=== PATIENT | female | born 1985 | race Caucasian/White ===

== ENCOUNTER 2021-04-19 09:50 | Outpatient (REF) | payer OTHER, SELFPAY ==
[2021-04-19 10:36] LABS: Hematocrit 42.9 % (37.0-47.0); Hemoglobin 14.4 g/dl (12.0-16.0); Mean Corpuscular HGB Conc 33.6 g/dl (31.0-35.0); Mean Corpuscular Hemoglobin 30.4 pg (27.0-33.0); Mean Corpuscular Volume 90.5 fL (80.0-98.0); Mean Platelet Volume 9.8 fL (9.4-12.3); Platelet Count 255 X10*3/uL (160-400); Red Blood Count 4.74 X10*6/uL (4.20-5.50); Red Cell Distribution Width 12.3 % (11.0-16.0)
[2021-04-19 10:54] LABS: Appearance Urine HAZY; Color Urine STRAW; Glucose Urine UA NEG (NEG); Leukocyte Esterase Urine 1+ (NEG); Nitrite Urine NEG (NEG); Specific Gravity - Urine <= 1.005 (1.005-1.025); Urine Blood NEG (NEG); Urine Ketones NEG (NEG); Urine Protein NEG (NEG-TRACE)
[2021-04-19 11:24] LABS: Bacteria Urine TRACE /LPF; RBC Urine 0-2 /HPF (0); Squamous Epithelial Cell Urine 4+ /LPF
[2021-04-19 11:34] LABS: Alanine Aminotransferase 42 U/L (0-31); Albumin Level 4.7 g/dL (3.5-5.0); Alkaline Phosphatase 72 U/L (39-117); Anion Gap 14 (12-20); Aspartate Amino Transferase 40 U/L (5-31); Bilirubin Direct 0.2 mg/dL (0.0-0.5); Bilirubin Total 0.5 mg/dL (0.0-1.0); Blood Urea Nitrogen 9 mg/dL (9-16); Calcium 10.1 mg/dL (8.4-10.2); Carbon Dioxide 26 mmol/L (22-29); Chloride 104 mmol/L (96-108); Cholesterol 228 mg/dL; Estimated Glomerular Filt Rate > 60; Glucose Random 94 mg/dL (60-115); HDL Cholesterol 68 mg/dL; LDL Cholesterol Calculated 147 mg/dl; Potassium 4.7 mmol/L (3.3-5.1); Sodium 139 mmol/L (135-145); Total Protein 7.6 g/dL (6.5-8.0); Triglycerides 69 mg/dL
[2021-04-19 11:57] LABS: Thyroid Stimulating Hormone 1.22 uIU/mL (0.32-4.0)
== END 2021-04-19 09:51 | disposition home or self-care (01) ==
LOC: HO.LAB 09:50
PROVIDERS: PCP Internal Medicine; Visit Provider Internal Medicine
DX: F90.9 Attention-deficit hyperactivity disorder, unspecified type (principal)
CPT/HCPCS: 36415; 80048; 80061; 80076; 81001; 84443; 85027

== ENCOUNTER 2023-05-29 08:30 | Outpatient (AMB) | payer OTHER, SELFPAY ==
--- NOTE | 2023-05-29 08:38 | A.OFFPC_ITS ---
Vital Signs 05/29/23 08:40 Height 5 ft 6.5 in Weight 155 lb 4 oz BMI 24.7 BP 120/70 Blood Pressure Location Lt brachial Position Sitting Pulse 92 Pulse Source Pulse Oximeter Pulse Oximetry (%) 100 Oxygen Delivery Method Room Air Intake Visit Reasons: PE Intake Note: Patient is here today for a physical and medication refill. 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 Accompanied by: Self / Same As Patient Allergies amoxicillin [AMOXICILLIN] Allergy (Intermediate, Verified 05/29/23 09:06) HIVES Penicillins [PCN] Allergy (Intermediate, Verified 05/29/23 09:06) HIVES penicillin V Allergy (Unknown, Verified 05/29/23 09:06) hives Medication List - Last Reconciled 05/29/23 by Mac Chaney MD dextroamphetamine-amphetamine 10 mg (Adderall) 10 mg PO DAILY dextroamphetamine-amphetamine 5 mg (Adderall) 5 mg PO DAILY 30 days multivitamin (Daily Multi-Vitamin tablet) 1 tab PO DAILY Tobacco use date assessed: 05/29/23 Dental Screening Dental Screen Date: 05/29/23 Did you have a dental visit in the last 12 months?: Yes Did you have a dental problem in the last 6 months where you did not have access to dental care?: No Was dental information given to patient?: Patient has dentist HPI PE HPI Details 37-year-old female presents to the [facility] for an annual physical. Patient is in excellent health, able to function well and do all activities of daily living. Patient reports that she can make out the difference between Ritalin and Adderall in her daily usage. She feels that the Ritalin is not working and would like to take Adderall on a regular basis. She would like to take Adderall 10 mg every day and 5 mg additional medication on the day she works. She is able to function and take care of her 2 young daughters, exercise and be focused at home. Her interpersonal relationships are excellent. She is sleeping well at night. [facility], [facility] Medical History ADHD Surgical History No pertinent past surgical history Social History Housing: House Alcohol intake: current Alcohol intake frequency: a few times a month Patient Tobacco Use Status: Former Tobacco user e-Cigarette/Vaping Use: Never Used Second Hand Smoke Exposure: No service: No Current occupational status: employed Cognitive needs: No Hearing needs: No Vision needs: No Questionnaire PHQ-9 Over the last 2 weeks, how often have you been bothered by any of the following problems? 1. Little interest or pleasure in doing things: not at all 2. Feeling down, depressed, or hopeless: not at all 3. Trouble falling or staying asleep, or sleeping too much: not at all 4. Feeling tired or having little energy: not at all 5. Poor appetite or overeating: not at all 6. Feeling bad about yourself - or that you are a failure or have let yourself or your family down: not at all 7. Trouble concentrating on things, such as reading the newspaper or watching television: not at all 8. Moving or speaking so slowly that other people could have noticed. Or the opposite - being so fidgety or restless that you have been moving around a lot more than usual: not at all 9. Thoughts that you would be better off or of hurting yourself in some way: not at all Total score: 0 Depression Screening Interpretation: Negative Depression Screening Done: Yes Source: Developed by Drs. Chencho Marie, Sanjuana Brown, Adriel Mann and colleagues, with an educational diana from [email or web address] Thrive Questionnaire Date Thrive assessed: 05/29/23 I am a: Patient What is your living situation today?: I have a steady place to live Within the past 12 months, did the food you bought not last and you didn't have the money to get more?: Never true Within the past 12 months, did you worry whether your food would run out before you got money to buy more?: Never true Do you have trouble paying for medicines?: No Do you have trouble getting transportation to medical appointments?: No Do you have trouble paying your heating and electricity bill?: No Do you have trouble taking care of your child, family member or friend?: No Do you have trouble with day-to-day activities such as bathing, preparing meals, shopping, managing finances, etc.?: No Are you currently unemployed and looking for a job?: No Are you interested in more education?: No Currently or been in a relationship where the following occur: no concerns reported THRIVE Score: 0 AUDIT C Alcohol Use Questionnaire (AUDIT-C) 1. How often do you have a drink containing alcohol?: Monthly or less 2. How many drinks containing alcohol do you have on a typical day when you are drinking?: 1 or 2 Total Score: 1 JAVED-7 AMB Questionnaire JAVED-7 Date JAVED - 7 assessed: 05/29/23 Feeling nervous, anxious, or on edge: 0 = Not at all Not being able to stop or control worryin = Not at all Worrying too much about different things: 0 = Not at all Trouble relaxin = Not at all Being so restless that it is hard to sit still: 0 = Not at all Becoming easily annoyed or irritable: 0 = Not at all Feeling afraid as if something awful might happen: 0 = Not at all Total JAVED-7 score (0-4 normal; 5-9 mild; 10-14 moderate; 15-21 severe): 0 Source: Developed by Drs. Chencho Marie, Sanjuana Brown, Adriel Mann and colleagues, with an educational diana from [email or web address]. Physical exam (Primary Care) Vital Signs: Last Vital Signs Pulse 92 05/29/23 08:40 BP 120/70 05/29/23 08:40 Pulse Ox 100 05/29/23 08:40 Oxygen Delivery Method Room Air 05/29/23 08:40 Care Plan Goal for BP management: Blood pressure is stable. BMI result Body Mass Index 24.7 Tobacco/Smoking Status: Tobacco use Status Tobacco use date assessed 05/29/23 05/29/23 08:44 Patient Tobacco Use Status Former Tobacco user 05/29/23 08:44 e-Cigarette/Vaping Use Never Used 05/29/23 08:44 PHQ-9: PHQ-9 Score PHQ-9: Total score 0 05/29/23 09:04 Depression Screening Interpretation: Negative Thrive Assessment: Date of Thrive Assessment Date Thrive assessed 05/29/23 05/29/23 08:44 Currently or been in a relationship where the following occur: no concerns reported Const General: cooperative and healthy appearing Nutritional Appearance: well nourished Orientation/consciousness: patient oriented x3 Limitations: no limitations HENMT Head: Yes normal to inspection Eyes General: appearance normal, both eyes and all related structures Neck Neck: Yes normal visual inspection Chest Chest palpation & inspection: normal palpation of entire chest wall Resp Effort & Inspection: normal respiratory effort Neuro General: patient oriented x3 Assessment and Plan Assessment & Plan (1) Annual physical exam: Code(s): Z00.00 - Encounter for general adult medical examination without abnormal findings Plan: Blood work including thyroid exam has been ordered. Patient has been encouraged to continue the regimen of exercise and diet. (2) ADHD: Code(s): F90.9 - Attention-deficit hyperactivity disorder, unspecified type Plan: As per patient's request, the Ritalin has been stopped and patient will be continued on Adderall. Her current dosage is 10 mg every day and an additional 5 mg on the day she goes to work. Orders: Orders Basic Metabolic Panel Today F90.9 - Attention-deficit hyperactivity disorder, unspecified type Liver Panel Today F90.9 - Attention-deficit hyperactivity disorder, unspecified type Lipid Panel Today F90.9 - Attention-deficit hyperactivity disorder, unspecified type Thyroid Stimulating Hormone Today F90.9 - Attention-deficit hyperactivity disorder, unspecified type Medications: New dextroamphetamine-amphetamine 10 mg (Adderall) Partial Fill upon patient request. 10 mg PO DAILY 30 tabs 0RF Refilled dextroamphetamine-amphetamine 5 mg (Adderall) Partial Fill upon patient request. 5 mg PO DAILY 30 days 30 tabs 0RF Discontinued methylphenidate HCl Partial Fill upon patient request. Discontinued Reason: Doctor's Order 20 mg (2 x 10 mg) PO DAILY 30 days 60 tabs 0RF Coding Level of Care Code Est Pt Prev Care 18-39y(38451) Diagnoses Annual physical exam Z00.00 ADHD F90.9
[2023-05-29 08:40] VITALS: BP 120/70; PULSE 92; O2SAT 100; BMI 24.7
== END 2023-05-29 09:02 | disposition home or self-care (01) ==
PROVIDERS: PCP Internal Medicine; Visit Provider Internal Medicine
DX: Z00.00 Encounter for general adult medical examination without abnormal findings (principal); F90.9 Attention-deficit hyperactivity disorder, unspecified type
CPT/HCPCS: 99395

== ENCOUNTER 2023-08-26 08:01 | Outpatient (AMB) | payer OTHER, SELFPAY ==
[2023-08-26 08:09] VITALS: BP 128/72; PULSE 77; O2SAT 98; BMI 22.7
--- NOTE | 2023-08-26 08:09 | MHC.PC.OV ---
Vital Signs 08/26/23 08:09 Height 5 ft 6.5 in Weight 143 lb BMI 22.7 BP 128/72 Blood Pressure Location Lt brachial Position Sitting Pulse 77 Pulse Source Pulse Oximeter Pulse Oximetry (%) 98 Oxygen Delivery Method Room Air Intake Visit Reasons: PossibleShingles Allergies amoxicillin [AMOXICILLIN] Allergy (Intermediate, Verified 08/26/23 08:09) HIVES Penicillins [PCN] Allergy (Intermediate, Verified 08/26/23 08:09) HIVES penicillin V Allergy (Unknown, Verified 08/26/23 08:09) hives Tobacco use date assessed: 05/29/23 Dental Screening Dental Screen Date: 05/29/23 HPI PossibleShingles HPI Details 38-year-old female presents to the office for a sick visit. She has developed a rash on the right side. Rash has been present for the last 2 days. Discomfort when she wears tight clothes. Able to sleep well at night. [facility] Medical History ADHD Surgical History No pertinent past surgical history Social History Housing: House Alcohol intake: current Alcohol intake frequency: a few times a month Patient Tobacco Use Status: Former Tobacco user Tobacco use type: Cigarette e-Cigarette/Vaping Use: Never Used Second Hand Smoke Exposure: No service: No Current occupational status: employed Cognitive needs: No Hearing needs: No Vision needs: No Questionnaire PHQ-9 Over the last 2 weeks, how often have you been bothered by any of the following problems? 1. Little interest or pleasure in doing things: not at all 2. Feeling down, depressed, or hopeless: not at all 3. Trouble falling or staying asleep, or sleeping too much: not at all 4. Feeling tired or having little energy: not at all 5. Poor appetite or overeating: not at all 6. Feeling bad about yourself - or that you are a failure or have let yourself or your family down: not at all 7. Trouble concentrating on things, such as reading the newspaper or watching television: not at all 8. Moving or speaking so slowly that other people could have noticed. Or the opposite - being so fidgety or restless that you have been moving around a lot more than usual: not at all 9. Thoughts that you would be better off or of hurting yourself in some way: not at all Total score: 0 Depression Screening Interpretation: Negative Depression Screening Done: Yes Source: Developed by Drs. Chencho Marie, Sanjuana Brown, Adriel Mann and colleagues, with an educational diana from [employer]. Thrive Questionnaire Date Thrive assessed: 05/29/23 AUDIT C Alcohol Use Questionnaire (AUDIT-C) 1. How often do you have a drink containing alcohol?: Monthly or less 2. How many drinks containing alcohol do you have on a typical day when you are drinking?: 1 or 2 Total Score: 1 JAVED-7 AMB Questionnaire JAVED-7 Date JAVED - 7 assessed: 05/29/23 Source: Developed by Drs. Chencho Marie, Sanjuana Brown, Adriel Mann and colleagues, with an educational diana from [employer]. Physical exam (Primary Care) Vital Signs: Last Vital Signs Pulse 77 08/26/23 08:09 BP 128/72 08/26/23 08:09 Pulse Ox 98 08/26/23 08:09 Oxygen Delivery Method Room Air 08/26/23 08:09 BMI result Body Mass Index 22.7 Tobacco/Smoking Status: Tobacco use Status Tobacco use date assessed 05/29/23 08/26/23 08:14 Patient Tobacco Use Status Former Tobacco user 08/26/23 08:14 Tobacco use type Cigarette 08/26/23 08:14 e-Cigarette/Vaping Use Never Used 08/26/23 08:14 PHQ-9: PHQ-9 Score PHQ-9: Total score 0 08/26/23 08:14 Depression Screening Interpretation: Negative Thrive Assessment: Date of Thrive Assessment Date Thrive assessed 05/29/23 08/26/23 08:14 Skin Other: Vesicular lesion along a dermatome pattern. Extending from the spine under the costal margin in the right side up to the umbilicus. Assessment and Plan Assessment & Plan (1) Herpes zoster: Code(s): B02.9 - Zoster without complications Plan: Valacyclovir and Neurontin started. Patient should make full recovery. Signs and symptoms of the disease and long-term effects explained to the patient. Medications: New valacyclovir 500 mg PO Q8H 21 tabs 0RF 7 days gabapentin (Neurontin) 100 mg PO TID 30 caps 0RF 10 days Coding Level of Care Code Est Pt Level 3 (18795) Complex EM visit Add On G2211 Diagnoses Herpes zoster B02.9
== END 2023-08-26 09:39 | disposition home or self-care (01) ==
PROVIDERS: PCP Internal Medicine; Visit Provider Internal Medicine
DX: B02.9 Zoster without complications (principal)
CPT/HCPCS: 99213

== ENCOUNTER 2023-08-26 08:31 | Outpatient (REF) | payer OTHER, SELFPAY ==
[2023-08-26 09:47] LABS: Alanine Aminotransferase 30 U/L (0-31); Albumin Level 4.2 g/dL (3.5-5.0); Alkaline Phosphatase 41 U/L (39-117); Anion Gap 12 (12-20); Aspartate Amino Transferase 31 U/L (5-31); Bilirubin Direct 0.1 mg/dL (0.0-0.5); Bilirubin Total 0.4 mg/dL (0.0-1.0); Blood Urea Nitrogen 10 mg/dL (9-16); Calcium 9.1 mg/dL (8.4-10.2); Carbon Dioxide 23 mmol/L (22-29); Chloride 109 mmol/L (96-108); Cholesterol 200 mg/dL (<200); Estimated Glomerular Filt Rate > 60; Glucose Random 114 mg/dL (60-115); HDL Cholesterol 69 mg/dL (>40); LDL Cholesterol Calculated 123 mg/dL (<100); Potassium 4.2 mmol/L (3.3-5.1); Sodium 140 mmol/L (135-145); Total Protein 6.4 g/dL (6.5-8.0); Triglycerides 43 mg/dL (<150)
[2023-08-26 10:06] LABS: Thyroid Stimulating Hormone 0.97 uIU/mL (0.32-4.0)
== END 2023-08-26 08:32 | disposition home or self-care (01) ==
LOC: HO.LAB 08:31
PROVIDERS: PCP Internal Medicine; Visit Provider Internal Medicine
DX: F90.9 Attention-deficit hyperactivity disorder, unspecified type (principal)
CPT/HCPCS: 36415; 80048; 80061; 80076; 84443

== ENCOUNTER 2024-01-28 14:38 | Outpatient (AMB) | payer OTHER, SELFPAY ==
--- NOTE | 2024-01-28 14:46 | MHC.PC.OV ---
Vital Signs 01/28/24 14:47 Height 5 ft 6.5 in Weight 138 lb 2 oz BMI 22.0 BP 110/76 Blood Pressure Location Lt brachial Position Sitting Pulse 100 Pulse Source Pulse Oximeter Pulse Oximetry (%) 98 Oxygen Delivery Method Room Air Intake Visit Reasons: 6mth f/u Intake Note: Patient is here to follow up on ADHD. 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 Responder: Not Required per policy Accompanied by: Self / Same As Patient Allergies amoxicillin [AMOXICILLIN] Allergy (Intermediate, Verified 01/28/24 15:09) HIVES Penicillins [PCN] Allergy (Intermediate, Verified 01/28/24 15:09) HIVES penicillin V Allergy (Unknown, Verified 01/28/24 15:09) hives Medication List - Last Reconciled 01/28/24 by Corine Montes PA-C dextroamphetamine-amphetamine 10 mg (Adderall) 10 mg PO DAILY 28 days dextroamphetamine-amphetamine 5 mg (Adderall) 5 mg PO DAILY 30 days gabapentin (Neurontin) 100 mg PO TID 10 days multivitamin (Daily Multi-Vitamin tablet) 1 tab PO DAILY valacyclovir 500 mg PO Q8H 7 days Tobacco use date assessed: 01/28/24 Dental Screening Dental Screen Date: 05/29/23 [facility] Medical History (Updated 01/28/24 @ 15:13 by Corine Montes PA-C) Influenza vaccine administered ADHD Surgical History No pertinent past surgical history Social History Housing: House Alcohol intake: current Alcohol intake frequency: a few times a month Patient Tobacco Use Status: Former Tobacco user Tobacco use type: Cigarette e-Cigarette/Vaping Use: Never Used Second Hand Smoke Exposure: Yes service: No Current occupational status: employed Cognitive needs: No Hearing needs: No Vision needs: No Questionnaire Thrive Questionnaire Date Thrive assessed: 05/29/23 AUDIT C Alcohol Use Questionnaire (AUDIT-C) 2. How many drinks containing alcohol do you have on a typical day when you are drinking?: 1 or 2 3. How often do you have six or more drinks on one occasion?: Never Total Score: 0 JAVED-7 AMB Questionnaire JAVED-7 Date JAVED - 7 assessed: 05/29/23 Source: Developed by Drs. Chencho Marie, Sanjuana Brown, Adriel Mann and colleagues, with an educational diana from [employer]. Physical exam (Primary Care) Vital Signs: Last Vital Signs Pulse 100 01/28/24 14:47 BP 110/76 01/28/24 14:47 Pulse Ox 98 01/28/24 14:47 Oxygen Delivery Method Room Air 01/28/24 14:47 BMI result Body Mass Index 22.0 Tobacco/Smoking Status: Tobacco use Status Tobacco use date assessed 01/28/24 01/28/24 14:51 Patient Tobacco Use Status Former Tobacco user 01/28/24 14:51 Tobacco use type Cigarette 01/28/24 14:51 e-Cigarette/Vaping Use Never Used 01/28/24 14:51 Thrive Assessment: Date of Thrive Assessment Date Thrive assessed 05/29/23 01/28/24 14:51 Office Procedures Flu Questionnaire Does the patient have a severe egg allergy?: No Does the patient have severe life threatening allergies?: No Does the patient have a fever or illness today?: No Has the patient ever had Guillain-Champlain Syndrome?: No Has the patient ever had any past reaction to a flu shot?: No Immunizations Fluarix Triv [id number] (PF) 45 mcg (15 mcg x 3)/0.5 mL IM syringe Performing Provider: Mac Chaney MD [facility] Administered by: Lili Miramontes LPN on 01/28/24 15:02 Dose Route Admin Location Dispensed Lot Number Expiration Date [facility] Chef & Owner 0.5 mL IM Right Deltoid 0.5 mL [id number] 08/16/24 42110-100-05 [employer] VIS Given Date VIS Provided VIS Publication Date 01/28/24 Single Vaccine 20 Eligibility Eligibility Date Funding Source Not [place] Eligible 01/28/24 Private Coding Level of Care Code Est Pt Level 4 (15711) Complex EM visit Add On G2211 Diagnoses ADHD F90.9 Influenza vaccine administered Z23 Assessment & Plan Assessment & Plan (1) ADHD: Code(s): F90.9 - Attention-deficit hyperactivity disorder, unspecified type Category: Medical Plan: see below (2) Influenza vaccine administered: Code(s): Z23 - Encounter for immunization Category: Medical Plan: Given today per patient request. Plan Plan Discussion Notes I discussed the patient's ADHD management, noting that her current regimen of Adderall appears to be effective. We reviewed that transitioning from Ritalin to Adderall indeed resulted in better focus and daily functioning. The patient reports no new issues at home or work. I advised that we would continue monitoring her cholesterol levels, given the slight elevation in LDL, but no medications are currently warranted given her young age and risk profile. The patient's post-shingles symptoms have resolved, and gabapentin was discontinued due to unwanted side effects. Patient Instructions - Maintain the current dosage of ADHD medication of Adderall 10 mg daily and additional 5 mg M- while working; discuss any concerns or side effects. - Continue regular exercise Orders: Orders Influenza [id number] Immunization Today Z23 - Encounter for immunization Scribe Plan - Not visible on output: History of Present Illness The patient is a 38-year-old female presenting with ADHD for a six-month follow-up to discuss ADHD management and her current medications. 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 Prior to transitioning to Adderall, she was on Ritalin but experienced improved focus and functionality with her current medication regimen. There have been no reported issues with her current dosage, indicating stable management. The patient had a prior episode of shingles in August, which was resolved with valacyclovir and gabapentin, though the latter was underutilized due to adverse effects such as sluggishness. Residual skin johnston have since faded, and she does not report ongoing pain. Hyperlipidemia was noted in her latest laboratory results from August, indicating slightly elevated LDL levels. There are no immediate plans for lipid-lowering medications due to her young age and absence of additional risk factors. In terms of visual health, the patient underwent laser vision correction several years ago, with no residual visual disturbances or difficulties, particularly at night. 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 Oriented X3. No acute distress. Head: Normal external exam. Normocephalic. Atraumatic. No Live signs noted. No raccoon eyes noted. Eyes: Pupils are equal, round, and reactive to light. Extraocular movements intact. Conjunctiva and sclera normal. Eyelids normal. Ears: External auditory canal normal. Tympanic membranes normal. Throat: Pharynx normal. Uvula midline. Moist mucous membranes. No trismus noted. No drooling noted. No muffled voice noted. Neck: Normal inspection. Neck supple. Full range of motion. No adenopathy. Thyroid Normal. No meningeal signs. No neck mass noted. Cardiovascular: Normal heart rate and rhythm. Heart sound normal. No murmurs noted. Pulses normal throughout. Respiratory: No respiratory distress. Painless inspiration. Breath sounds normal. No wheezes/rales/rhonchi noted. Chest nontender. No accessory muscle usage noted or decreased air movement noted. Abdomen: Soft and nontender. Bowel sounds normal in all 4 quadrants. No distention noted. No organomegaly noted. No visible injury noted. Back: No costovertebral angle tenderness. Full range of motion noted. Skin: Skin warm and dry. Normal skin color. Normal skin turgor. No rashes/lesions/lacerations noted. Extremities: No lower extremity edema. Extremities exhibit normal range of motion. Extremities nontender. Neuro: Oriented X 3. No motor deficit. No sensory deficit. Reflexes normal. Results - Labs: Previous lipid profile indicating slightly elevated LDL - Other tests: Vision corrections laser surgery done in the past; results not specified in detail during conversation Plan Discussion Notes I discussed the patient's ADHD management, noting that her current regimen of Adderall appears to be effective. We reviewed that transitioning from Ritalin to Adderall indeed resulted in better focus and daily functioning. The patient reports no new issues at home or work. I advised that we would continue monitoring her cholesterol levels, given the slight elevation in LDL, but no medications are currently warranted given her young age and risk profile. The patient's post-shingles symptoms have resolved, and gabapentin was discontinued due to unwanted side effects. Patient Instructions - Maintain the current dosage of ADHD medication of Adderall 10 mg daily and additional 5 mg M- while working; discuss any concerns or side effects. - Continue regular exercise Patient was informed and verbally consented to the use of an ambient scribe for clinic note documentation during this visit.
[2024-01-28 14:47] VITALS: BP 110/76; PULSE 100; O2SAT 98; BMI 22.0
== END 2024-01-28 15:05 | disposition home or self-care (01) ==
PROVIDERS: PCP Internal Medicine; Visit Provider Internal Medicine
DX: Z23 Encounter for immunization (principal)

== ENCOUNTER → 2024-01-28 14:38 | Outpatient (BNVA) | payer OTHER, SELFPAY | PROVIDERS: PCP Internal Medicine; Visit Provider Internal Medicine | DX: F90.9 Attention-deficit hyperactivity disorder, unspecified type (principal); Z79.899 Other long term (current) drug therapy; Z23 Encounter for immunization | CPT/HCPCS: 90471; 90656 ==

== ENCOUNTER 2024-07-29 14:09 | Outpatient (AMB) | payer OTHER, SELFPAY ==
--- NOTE | 2024-07-29 14:17 | MHC.PC.OV ---
Vital Signs 07/29/24 14:19 07/29/24 14:40 Height 5 ft 6.5 in Weight 142 lb 6 oz BMI 22.6 BP 140/80 H 112/62 Blood Pressure Location Lt brachial Lt brachial Position Sitting Sitting Pulse 63 Pulse Source Pulse Oximeter Temp 97.3 F Temp Source Temporal Artery Scan Pulse Oximetry (%) 99 Oxygen Delivery Method Room Air Intake Visit Reasons: 6 month f/u Intake Note: Patient is here to follow up on ADHD. Pharmaceutical Specialty Representative Required: No Cardboard Inserter: Not Required per policy Accompanied by: Self / Same As Patient Allergies amoxicillin [AMOXICILLIN] Allergy (Intermediate, Verified 07/30/24 08:25) HIVES Penicillins [PCN] Allergy (Intermediate, Verified 07/30/24 08:25) HIVES penicillin V Allergy (Unknown, Verified 07/30/24 08:25) hives Medication List - Last Reconciled 07/30/24 by Mac Chaney MD dextroamphetamine-amphetamine 10 mg (Adderall) 10 mg PO DAILY dextroamphetamine-amphetamine 5 mg (Adderall) 5 mg PO DAILY 30 days multivitamin (Daily Multi-Vitamin tablet) 1 tab PO DAILY Tobacco use date assessed: 07/29/24 Dental Screening Dental Screen Date: 07/29/24 Did you have a dental visit in the last 12 months?: Yes Did you have a dental problem in the last 6 months where you did not have access to dental care?: No Was dental information given to patient?: Patient has dentist [facility] Medical History Influenza vaccine administered ADHD Surgical History No pertinent past surgical history Social History Housing: House Alcohol intake: current Alcohol intake frequency: a few times a month Patient Tobacco Use Status: Former Tobacco user Tobacco use type: Cigarette e-Cigarette/Vaping Use: Never Used Second Hand Smoke Exposure: Yes service: No Current occupational status: employed Cognitive needs: No Hearing needs: No Vision needs: No Questionnaire PHQ-9 Over the last 2 weeks, how often have you been bothered by any of the following problems? 1. Little interest or pleasure in doing things: not at all 2. Feeling down, depressed, or hopeless: not at all 3. Trouble falling or staying asleep, or sleeping too much: not at all 4. Feeling tired or having little energy: not at all 5. Poor appetite or overeating: not at all 6. Feeling bad about yourself - or that you are a failure or have let yourself or your family down: not at all 7. Trouble concentrating on things, such as reading the newspaper or watching television: not at all 8. Moving or speaking so slowly that other people could have noticed. Or the opposite - being so fidgety or restless that you have been moving around a lot more than usual: not at all 9. Thoughts that you would be better off or of hurting yourself in some way: not at all Total score: 0 Depression Screening Interpretation: Negative Depression Screening Done: Yes Source: Developed by Drs. Chencho Marie, Sanjuana Brown, Adriel Mann and colleagues, with an educational diana from [employer]. Thrive Questionnaire Date Thrive assessed: 07/27/24 I am a: Patient What is your living situation today?: I have a steady place to live Within the past 12 months, did the food you bought not last and you didn't have the money to get more?: Never true Within the past 12 months, did you worry whether your food would run out before you got money to buy more?: Never true Do you have trouble paying for medicines?: No Do you have trouble getting transportation to medical appointments?: No Do you have trouble paying your heating and electricity bill?: No Do you have trouble taking care of your child, family member or friend?: No Do you have trouble with day-to-day activities such as bathing, preparing meals, shopping, managing finances, etc.?: No Are you currently unemployed and looking for a job?: No Are you interested in more education?: No Please select the resources that you would like help with: None Currently or been in a relationship where the following occur: No concerns reported THRIVE Score: 0 AUDIT C Alcohol Use Questionnaire (AUDIT-C) 1. How often do you have a drink containing alcohol?: 2-4 times a month 2. How many drinks containing alcohol do you have on a typical day when you are drinking?: 3 or 4 3. How often do you have six or more drinks on one occasion?: Never Total Score: 3 JAVED-7 AMB Questionnaire JAVED-7 Date JAVED - 7 assessed: 07/29/24 Feeling nervous, anxious, or on edge: 0 = Not at all Not being able to stop or control worryin = Not at all Worrying too much about different things: 0 = Not at all Trouble relaxin = Not at all Being so restless that it is hard to sit still: 0 = Not at all Becoming easily annoyed or irritable: 0 = Not at all Feeling afraid as if something awful might happen: 0 = Not at all Total JAVED-7 score (0-4 normal; 5-9 mild; 10-14 moderate; 15-21 severe): 0 Source: Developed by Drs. Chencho Marie, Sanjuana Brown, Adriel Mann and colleagues, with an educational diana from [employer]. Physical exam (Primary Care) Vital Signs: Last Vital Signs Temp 97.3 F 07/29/24 14:19 Pulse 63 07/29/24 14:19 BP 112/62 07/29/24 14:40 Pulse Ox 99 07/29/24 14:19 Oxygen Delivery Method Room Air 07/29/24 14:19 BMI result Body Mass Index 22.6 Tobacco/Smoking Status: Tobacco use Status Tobacco use date assessed 07/29/24 07/29/24 14:23 Patient Tobacco Use Status Former Tobacco user 07/29/24 14:23 Tobacco use type Cigarette 07/29/24 14:23 e-Cigarette/Vaping Use Never Used 07/29/24 14:23 PHQ-9: PHQ-9 Score PHQ-9: Total score 0 07/29/24 14:40 Depression Screening Interpretation: Negative Thrive Assessment: Date of Thrive Assessment Date Thrive assessed 07/27/24 07/29/24 14:23 Currently or been in a relationship where the following occur: No concerns reported Coding Level of Care Code Est Pt Level 4 (23963) Complex EM visit Add On G2211 Diagnoses ADHD F90.9 Assessment & Plan Assessment & Plan (1) ADHD: Code(s): F90.9 - Attention-deficit hyperactivity disorder, unspecified type Category: Medical Plan: Continue meds. Patient is able to do all ADL and feel's well on the medication. I encouraged patient to consider decreasing the dosage and frequency on the medication. Plan History of Present Illness - The patient is a 39-year-old female presenting with medication management for Attention Deficit Disorder. - Treatment with Adderall has been successful, with dosage requirements reportedly less than the prescribed amount due to reduced necessity. - Patient indicates no additional medications for Attention Deficit Disorder or any antidepressants are currently being used. - Recognition of elevated blood pressure was recorded at this visit. Social History - The patient is employed full-time and is maintaining her job responsibilities effectively. - Exercise is noted as part of the patient's routine. 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 Review of Systems - Psychiatric: Reports effective focus and management with current medication; denies the need for antidepressants. - Ophthalmologic: Denies visual problems, vision reported as fine. - Cardiovascular: Awareness of elevated blood pressure. - Respiratory: Denies respiratory problems. - General: Reports feeling good overall with no significant health concerns expressed. Physical Exam General: Cooperative and healthy appearing Nutritional Appearance: Well nourished Orientation/consciousness: Patient oriented x3 Limitations: No limitations Head: Normal to inspection General: Appearance normal, both eyes and all related structures Neck: Normal visual inspection Chest: Normal palpation of entire chest wall Respiratory: Fine ormal respiratory effort Neurology: Patient oriented x3 Results Plan 1. Attention Deficit Disorder - Continue Adderall with current dosage, adjust based on patient's usage pattern. - Consider gradual reduction, funeral counselor on lowering dependence. 2. Blood Pressure Elevation - Proceed with cardiovascular evaluations through completed blood work. - Encourage regular blood pressure checks. Discussion Notes The patient and I discussed her current management for Attention Deficit Disorder, with a favorable response to Adderall noted. I advised possibly reducing medication use over time to enable the evaluation of natural symptom control, discussing the role of medications as chemical stimulants. Discussed the importance of blood work to assess cardiovascular health given elevated blood pressure noted during the visit. Patient was instructed to complete fasting morning lab tests, and results will be reviewed and discussed at the follow-up visit in six months. The patient understood the potential long-term effects of stimulant medications and agreed to consider efforts for potential decreased dependency. Patient Instructions - Continue taking your Adderall as currently prescribed, but evaluate the need for each dose. - Prioritize completing fasting blood work in the morning. - Keep monitoring your blood pressure, especially considering today's elevated reading. - Plan a follow-up appointment in six months to reassess medication efficacy and dosage. Orders: Orders Lipid Panel 07/29/24.9 - Attention-deficit hyperactivity disorder, unspecified type Thyroid Stimulating Hormone 07/29/2490.9 - Attention-deficit hyperactivity disorder, unspecified type UA and rflx microscopic 07/29/24.9 - Attention-deficit hyperactivity disorder, unspecified type Basic Metabolic Panel 07/29/2490.9 - Attention-deficit hyperactivity disorder, unspecified type Complete Blood Count no Diff 07/29/2490. - Attention-deficit hyperactivity disorder, unspecified type Liver Panel 07/29/24.9 - Attention-deficit hyperactivity disorder, unspecified type
[2024-07-29 14:19] VITALS: BP 140/80; PULSE 63; TEMP 36.3; O2SAT 99; BMI 22.6
[2024-07-29 14:40] VITALS: BP 112/62
--- OUTSIDE RECORDS SUMMARY | 2024-07-29 16:44 | XMS_ITS | Clinical Summary ---
Author Organization [facility] [address] [place] [address] [place] [phone] Phone Care Team Providers Care Global Manager Name Role Phone Mac Chaney MD Primary Care Provider [phone] Allergies Active Allergy Reactions Criticality Noted Date Comments Amoxicillin Hives Medium 03/22/2020 Had reaction when she was 12-13yrs old Penicillins Hives Medium 03/22/2020 occurred age 14-13yr Medications PNV,calcium 89-gdpl-gwost acid ( Plus, calcium carb,) 27 mg iron- 1 mg tablet Take 1 Tab by mouth daily. 03/22/2020 Active amphetamine-dext roamphetamine (ADDERALL) 10 mg tablet Take 1 tablet (10 mg total) by mouth 1 (one) time each day. Max Daily Amount: 10 mg 03/22/2024 Active Active Problems Problem Noted Date Diagnosed Date Family history of breast cancer 04/28/2024 Overview (04/28/2024): [facility] genetic testing negative. Anton Lifetime Breast Cancer Risk 25.3%. Gestational HTN, third trimester 11/18/2020 Rh negative state in antepartum period Encounters Date Type Department Care Team Description 05/31/2024 Telephone Obstetrics and Gynecology [facility] [place] [address] [place], [place] [phone] Lisa Lobo CNM 05/25/2024 Telephone Obstetrics & Gynecology - [address] [phone] Lisa Lobo CNM 04/30/2024 7:22 AM EDT - 04/30/2024 11:59 PM EDT Hospital Encounter Radiology Department - [address] [phone] Breast cancer screening, high risk patient; Screening for breast cancer using non-mammogram modality Discharge Disposition: Home or Self Care from Last 3 Months Immunizations Name Administration Dates Next Due Tdap Tetanus diptheria acell ular pertussis (Boostrix; Adacel) 7yo and older 08/25/2020 Surgical History Surgery Date Site/Laterality Comments OTHER SURGICAL HISTORY 2009 PROCEDURE: CERVICAL LEEP CONE BIOPSY [facility] PATHOLOGY EX BREAST SURGERY 2010 PROCEDURE: IN BREAST AUGMENTATION WITH IMPLANT WISDOM TOOTH EXTRACTION PROCEDURE: HISTORICAL WISDOM TEETH EXTRACTION; COMMENT: all 4 BREAST ENHANCEMENT SURGERY W IMPLANT Medical History Medical History Date Comments Abnormal Pap smear of cervix 2009 DX: Abnormal Pap smear of cervix; COMMENT: LEEP, normal paps since. Family History Medical History Relation Name Comments No Known Problems Daughter Hypertension Father Breast cancer Father's Sister paternal au nt Heart attack Maternal Grandmother Hypertension Mother No Known Problems Paternal Grandfather Breast cancer Paternal Grandmother Depression Sister Cervical cancer Neg Hx Colon cancer Neg Hx Ovarian cancer Neg Hx Pancreatic cancer Neg Hx Prostate cancer Neg Hx Uterine cancer Neg Hx Relation Name Status Comments Daughter Alive Father Alive Father's Sister Alive Maternal Grandfather fell in hospital, became paralyzed - passed from complications Maternal Grandmother Mother Alive Paternal Grandfather Paternal Grandmother Sister Alive Social History Tobacco Use Types Packs/Day Years Used Date Smoking Tobacco: Former Smokeless Tobacco: Never Alcohol Use Standard Drinks/Week Comments Yes 3 (1 standard drink = 0.6 oz pur e alcohol) Housing Instability Answer Date Recorde d Are you worried that in the next 2 months you may not have stable housing? No 04/08/2024 Food Access & Nutrition Answer Date Rec orded Do you have access to a vari ety of food including fruits and vegetables? Yes 04/08/2024 Access to Healthcare Answer Date Record ed Within the last 3 months, ho w many times did you visit the emergency department for your medical care? 0 04/08/2024 Health Literacy Answer Date Recorded How often do you need to hav e someone help you when you read instructions, pamphlets, or other written material from your doctor or pharmacy? Never 04/08/2024 Caregiver: How often do you need to have someone help you when you read instructions, pamphlets, or other written material from your doctor or pharmacy? Not on file 04/08/2024 Financial Risk Answer Date Recorded How hard is it for you to pa y for the very basics like food, housing, medical care, and air conditioning / heating? Not very hard 04/08/2024 Transportation Answer Date Recorded Has the lack of transportati on kept you from meetings, work, or from getting things needed for daily living? No Has the lack of transportati on kept you from medical appointments or from getting medications? No 04/08/2024 Social Isolation Answer Date Recorded How often do you feel lonely or isolated from th ose around you? Never 04/08/2024 Food Risk Answer Date Recorded Within the past 12 months we worried whether our food would run out before we got money to buy more. Never true 04/08/2024 Within the past 12 months th e food we bought just didn't last and we didn't have money to get more. Never true 04/08/2024 Dependent Care Answer Date Recorded Do you need help finding or paying for care for your loved ones. For example, early childhood associate or elderly care for an older adult? No 04/08/2024 Education Answer Date Recorded Do you think completing more education or training, like finishing a GED, going to college, or learning a trade, would be helpful for you? No 04/08/2024 Employment and Income Answer Date Recor ded During the last four weeks, have you been actively looking for work? No 04/08/2024 Living Situation Answer Date Recorded What is your living situation? 0 04/08/2024 Comments No Sex and Gender Information Value Date Recorded Sex Assigned at Not on file Legal Sex Female 3:24 PM EST Gender Identity Not on file Sexual Orientation Not on file Obstetrics History Para Term AB IAB SAB Ectopic Multiple Livin g Live Births 2 2 2 2 Date Outcome GA Total Labor Labor/2nd/3rd Weight Sex Type Anes PTL Nevin A1 A5 Name Clin Term Term Last Filed Vital Signs Vital Sign Reading Time Taken Comments Blood Pressure 134/84 04/08/2024 1:38 PM EST Pulse 88 04/08/2024 1:38 PM EST Temperature - - Respiratory Rate - - Oxygen Saturation - - Inhaled Oxygen Concentration - - Weight 63 kg (139 lb) 04/08/2024 1:35 PM EST Height 165.1 cm (5' 5 ) 04/08/2024 1:35 PM EST Body Mass Index 23.13 04/08/2024 1:35 PM EST Plan of Treatment Health Maintenance Due Date Last Done Comments Hepatitis B Vaccines (1 of 3 - 19+ 3-dose series) 06/12/2006 COVID-19 Vaccine (2023-2 5 season) 2023 01/18/2021, 12/28/2020 Cholesterol Screening (Lipid Panel) 01/13/2024 Hypertension/CHF/CAD Annual BMP Blood Test 01/13/2024 Depression Screening 04/08/2025 04/08/2024 Social Influencers of Health Screening 04/08/2025 04/08/2024 Cervical Cancer Screening: HPV 05/09/2025 05/09/2020 DTaP,Tdap,and Td Vaccines (2 - Td or Tdap) 08/25/2030 08/25/2020 HIV Screening Completed 05/09/2020 Hepatitis C Screening Completed 05/09/2020 Influenza Vaccine Completed 01/28/2024, 11/22/2021 HIB Vaccines Aged Out No longer eligi ble based on patient's age to complete this topic HPV Vaccines Aged Out No longer eligi ble based on patient's age to complete this topic Hepatitis A Vaccines Aged Out No long er eligible based on patient's age to complete this topic IPV Vaccines Aged Out No longer eligi ble based on patient's age to complete this topic MMR Vaccines Aged Out No longer eligi ble based on patient's age to complete this topic Meningococcal ACWY Vaccine Aged Out N o longer eligible based on patient's age to complete this topic Meningococcal B Vaccine Aged Out No l onger eligible based on patient's age to complete this topic Pneumococcal Vaccine: Pediatrics (0 to 5 Years) and At-Risk Patients (6 to 64 Years) Aged Out No longer eligible b ased on patient's age to complete this topic RSV Immunization Patients Under 20 months Aged Out No longer eligible b ased on patient's age to complete this topic Varicella Vaccines Aged Out No longer eligible based on patient's age to complete this topic Procedures Procedure Name Priority Date/Time Associated Diagnosis Comments MG MAMMO DIGITAL SCREENING BILAT Routine 04/30/2024 7:45 AM EDT Breast cancer screening, high risk patient Screening for breast cancer using non-mammogram modality HPV Routine 05/09/2020 HEPATITIS C SCREENING Routine 05/09/2020 HIV SCREENING Routine 05/09/2020 from Last 3 Months or Most Recently Relevant to Health Maintenance Results * MG Mammo Digital Screening bilat (04/30/2024 7:45 AM EDT) Anatomical Region Laterality Modality Breast Bilateral Mammography 04/30/2024 11:5 6 AM EDT Impressions 04/30/2024 11:58 AM EDT BILATERAL BREASTS: Benign, no evidence of malignancy. Normal interval follow-up is recommended in 12 months. BREAST DENSITY: B - There are scattered areas of fibroglandular density. BI-RADS CATEGORY: 2 - BENIGN RECOMMENDATION: Screening bilateral mammogram is recommended in 1 year. Mammo Location: [facility], [address] [place] [address], [id number], . -------- FINAL REPORT -------- Dictated By: Nuvia Zapata Dictated Date: 04/30/2024 11:56 ET Assigned Physician: Nuvia Zapata Reviewed and Electronically Signed By: Nuvia Zapata Signed Date: 04/30/2024 11:58 ET Workstation ID: [id number] Transcribed By: Self Edit Transcribed Date: 04/30/2024 11:56 ET Narrative 04/30/2024 11:58 AM EDT STUDY: Bilateral screening mammography with tomosynthesis and CAD TECHNIQUE: Bilateral full-field digital screening mammography is obtained and read in conjunction with computer-aided detection. ??Tomosynthesis as well as 2-D C view imaging were obtained. ??Images with implant and displaced implant views were obtained. COMPARISON: None. ??This is a baseline study. BILATERAL BREASTS: Bilateral retropectoral silicone implants appear intact. No significant masses, suspicious calcifications or other abnormalities are seen in either breast. Procedure Note Nuvia Zapata MD - 04/30/2024 STUDY: Bilateral screening mammography with tomosynthesis and CAD TECHNIQUE: Bilateral full-field digital screening mammography is obtainedand read in conjunction with computer-aided detection. Tomosynthesis aswell as 2-D C view imaging were obtained. Images with implant anddisplaced implant views were obtained. COMPARISON: None. This is a baseline study. BILATERAL BREASTS: Bilateral retropectoral silicone implants appearintact. No significant masses, suspicious calcifications or otherabnormalities are seen in either breast. IMPRESSION: BILATERAL BREASTS: Benign, no evidence of malignancy. Normal intervalfollow-up is recommended in 12 months. BREAST DENSITY: B - There are scattered areas of fibroglandular density. BI-RADS CATEGORY: 2 - BENIGN RECOMMENDATION: Screening bilateral mammogram is recommended in 1 year. Mammo Location: [facility], [address] [place] [address], [id number], . -------- FINAL REPORT -------- Dictated By: Nuvia Zapata Dictated Date: 04/30/2024 11:56 ET Assigned Physician: Nuvia Zapata Reviewed and Electronically Signed By: Nuvia Zapata Signed Date: 04/30/2024 11:58 ET Workstation ID: [id number] Transcribed By: Self Edit Transcribed Date: 04/30/2024 11:56 ET Lisa CRAFT IMG BI PROCEDURES Final Result * Cervical Cancer Screening: HPV (05/09/2020) Pathologist [facility] Cervical Cancer Screening: HPV Negative, Abstracted Historical Provider HEALTH MAINTENANCE Final Result * HIV Screening (05/09/2020) Pathologist [facility] HIV Screening Abstracted Historical Provider HEALTH MAINTENANCE Final Result * Hepatitis C Screening (05/09/2020) Pathologist [facility] Hepatitis C Screening Abstracted Historical Provider HEALTH MAINTENANCE Final Result from Last 3 Months or Most Recently Relevant to Health Maintenance Insurance [facility] Care Teams Global Manager Relationship Specialty Start Date End Date Mac Chaney MD [facility] [address] [place] [address] [address] [place] [address] PCP - General Internal Medicine 05/31/20
== END 2024-07-29 14:42 | disposition home or self-care (01) ==
LOC: HO.HMCH 14:10
PROVIDERS: PCP Internal Medicine; Visit Provider Internal Medicine
DX: F90.9 Attention-deficit hyperactivity disorder, unspecified type (principal)

== ENCOUNTER → 2024-07-29 14:09 | Outpatient (BNVA) | payer OTHER, SELFPAY | PROVIDERS: PCP Internal Medicine; Visit Provider Internal Medicine | DX: Z13.89 Encounter for screening for other disorder (principal) ==